=== PATIENT | female | born 1985 ===

== ENCOUNTER 2024-08-13 17:40 | Emergency (ER) | payer BC, SELFPAY ==
--- NOTE | ~2024-08-13 | XR_ITS ---
EXAMINATION: XR foot RT min 3V DATE: 08/13/2024 19:00 INDICATION: Right foot pain. Injury. TECHNIQUE: 4 views of right foot were obtained. COMPARISON: None. FINDINGS: Alignment is normal. No fracture. There is mild osteoarthritis of first metatarsophalangeal joint. IMPRESSION: 1. No fracture. Reviewed, dictated and finalized at location A. SH PHOTOGRAPHER IMPRESSION: 1. No fracture.
--- NOTE | 2024-08-13 18:00 | ED.LOWEXIN ---
HPI - Extremity Injury (Lower) General Chief Complaint: Extremity Injury, Lower Stated Complaint: Injured Right Foot Time Seen by Provider: 08/13/24 19:08 Source: patient and RN notes reviewed Mode of arrival: ambulatory Limitations: no limitations History of Present Illness HPI Narrative: 39-year-old female presents with concern for injury to the 1st digit of her right foot. Reports 4 days ago she dropped a heavy block on for 2. Reports small amount of bleeding the base of the toe. She reports pain radiates up the foot. She denies any intervention. MD complaint: foot injury Related Data Allergies Allergy/AdvReac Type Severity Reaction Status Date / Time No Known Allergies Allergy Verified 08/13/24 18:51 Review of Systems Review of Systems: CONSTITUTIONAL: Denies malaise, chills, sweats, or fever. SKIN: Denies rash or itching, redness, warmth, swelling. MUSCULOSKELETAL: Reports pain in the 1st digit of the right foot NEUROLOGIC: Denies numbness, weakness All systems reviewed & are unremarkable except as noted in HPI and below PMFSH Comments At time of signature, agree with nursing past medical, surgical, social and family history. There is no relevant family history pertinent to the presenting complaint Exam Narrative: GENERAL: Well-appearing, well-nourished, and in no acute distress. HEAD: Normocephalic, atraumatic. EYES: PERRLA, conjunctivae clear NECK: Supple. CHEST: Speaks in full sentences. No respiratory distress. HEART: Regular rate and rhythm. Normal and equal peripheral pulses. EXTREMITIES: 1st digit of right foot has grossly normal strength and sensation, grossly normal range of motion. No edema. Mild ecchymosis beneath the the toenail ecchymosis with a small amount of dried blood, no subungual hematoma noted. Normal sensation with sensitivity to light touch and pain. General digit tenderness. No open wounds, no skin tenting, no devitalized tissue or atrophy, no trophic changes, no obvious deformity, alignment normal, nearby joints and structures intact. Distal pulses palpable and equal bilaterally, skin warm, dry, pink. Capillary refill less than 3 seconds. SKIN: Warm, dry, no rash. NEURO: Alert and oriented x3. PSYCH: Normal mood and affect Course Course Emergency Course: Patient is aware of diagnosis, understands and agrees to treatment plan. Anticipatory guidance given. Patient agrees to follow-up as directed and is aware of reasons to seek care at the emergency department. Portions of this record may have been created with voice recognition software Level of Care: Express Care Visit Vital Signs Vital signs: Vital Signs Temperature 98 F 08/13/24 18:24 Pulse Rate 85 08/13/24 18:24 Respiratory Rate 16 08/13/24 18:24 Blood Pressure 100/65 08/13/24 18:24 Pulse Oximetry 100 08/13/24 18:24 Temperature 98 F 08/13/24 18:24 Pulse Rate 85 08/13/24 18:24 Respiratory Rate 16 08/13/24 18:24 Blood Pressure 100/65 08/13/24 18:24 Pulse Oximetry 100 08/13/24 18:24 Reviewed. MDM - Extremity Injury (Lower) MDM Narrative Medical decision making narrative: Patients injury and pain is consistent with musculoskeletal etiology. No signs of neurological or vascular compromise on exam. Compartments and tissues are soft without signs of compartment syndrome. Pain is felt appropriate for further evaluation on an outpatient basis. Imaging Data My impression: Images reviewed, interpreted by radiologist, agree, see report. Radiologist's impression: EXAMINATION: XR foot RT min 3V DATE: 08/13/2024 19:00 INDICATION: Right foot pain. Injury. TECHNIQUE: 4 views of right foot were obtained. COMPARISON: None. FINDINGS: Alignment is normal. No fracture. There is mild osteoarthritis of first metatarsophalangeal joint. IMPRESSION: 1. No fracture. Critical Care Time Critical Care Time Critical Care Time: No Discharge Plan Discharge Clinical Impression: Contusion of toe Patient Disposition: Home, Self-Care Condition: Stable Instructions: Contusion in Adults (ED) Additional Instructions: Avoid activities that cause pain until the pain subsides. Ice to the area 20-30 minutes 4-6 times a day Elevate above heart Tylenol for lesser pain Ibuprofen regularly for the next 2-3 days for the inflammation Follow up with your primary care provider if the condition is not improving within 1 week. If the condition worsens with numbness, tingling, decrease sensation with weakness seek treatment in the emergency room immediately. Patient Language: Niuean Prescriptions: New ibuprofen 600 mg tablet 600 mg PO QID PRN (Reason: pain) Qty: 30 0RF Follow-up/Referrals: PHYSICIAN,NEUROSURGERY SPINE PHYSICIAN [Primary Care Provider] - Time of Disposition: 19:14
[2024-08-13 18:24] VITALS: BP 100/65; PULSE 85; RESP 16; TEMP 36.6; O2SAT 100
== END 2024-08-13 19:24 | disposition home or self-care (01) ==
PROVIDERS: Emergency Provider Nurse Practitioner
DX: S90.111A Contusion of right great toe without damage to nail, initial encounter (principal); W20.8XXA Other cause of strike by thrown, projected or falling object, initial encounter; E03.9 Hypothyroidism, unspecified
CPT/HCPCS: 73630; 99213; G0463

== ENCOUNTER 2024-08-27 16:54 | Emergency (ER) | payer BC, SELFPAY ==
--- NOTE | 2024-08-27 16:57 | ED.CHESTPAIN ---
HPI - Chest Pain General Chief Complaint: Chest Pain Stated Complaint: Tachycardia Source: patient and RN notes reviewed Mode of arrival: ambulatory Limitations: no limitations History of Present Illness HPI narrative: Patient is a 39-year-old female who presents to the [facility] with complaints heart palpitations starting at 4:00 p.m. today. She states that she feels as if she had a rapid heart rate at that time. She states that it was accompanied by shortness of breath and left-sided sharp chest pain. She states that she is experience tachycardia in the past but has never had pain or shortness of breath with it. She denies any known cardiac history. Related Data Home Medications ?Medication ?Instructions ?Recorded ?Confirmed ?Last Taken ?Type levothyroxine 75 mcg tablet 75 mcg PO DAILY 08/27/24 08/27/24 Unknown History (Euthyrox) Allergies Allergy/AdvReac Type Severity Reaction Status Date / Time No Known Allergies Allergy Verified 08/27/24 17:00 Review of Systems Review of Systems: CONSTITUTIONAL: Denies fever, chills, or sweats. EYES: Denies visual changes, redness, or discharge. ENT: Denies otalgia and sore throat CARDIOVASCULAR: Reports chest pain and palpitations. RESPIRATORY: Denies cough but reports dyspnea. GASTROINTESTINAL: Denies abdominal pain, nausea, vomiting, or diarrhea. GENITOURINARY: Denies dysuria or hematuria. SKIN: Denies rash or itching. MUSCULOSKELETAL: Denies back pain, joint pain, or myalgia. NEUROLOGIC: Denies headache, numbness, or weakness. Pertinent positives per HPI. PMFSH Comments At the time of my signature, I reviewed and agree with the nursing past medical, surgical, social, and family history. There is no relevant family history pertinent to the patient complaint. Exam Narrative: GENERAL: This is a well-nourished, well-developed patient, in no apparent distress. HEAD: normocephalic, atraumatic. EYES: PERRL. Sclera clear/white. Vision is grossly intact. EARS: External ears normal, auditory canals clear and without drainage, TMs normal without perforation. Hearing grossly intact. NOSE: External nose normal with no obvious nasal discharge, nares without redness, no rhinorrhea. THROAT: Mucous membranes moist, posterior pharynx clear. NECK: Neck supple, non-tender without lymphadenopathy, masses or thyromegaly. CARDIOVASCULAR: Regular rate and rhythm without murmurs, gallops, or rubs. RESPIRATORY: Clear to auscultation. Breath sounds equal bilaterally. No wheezes, rales, or rhonchi. GASTROINTESTINAL: Abdomen soft, non-tender, nondistended. Bowel sounds are active. No hepato-splenomegaly, or palpable masses. No guarding. SKIN: warm, intact with no suspicious lesions or rash, good texture and turgor. NEURO: awake, alert, and oriented to person, place and time. There were no obvious focal neurologic abnormalities. Course Course Level of Care: Express Care Visit Vital Signs Vital signs: Vital Signs Temperature 98.6 F 08/27/24 17:03 Pulse Rate 89 08/27/24 17:03 Respiratory Rate 16 08/27/24 17:03 Blood Pressure 111/77 08/27/24 17:03 Pulse Oximetry 100 08/27/24 17:03 Temperature 98.6 F 08/27/24 17:03 Pulse Rate 89 08/27/24 17:03 Respiratory Rate 16 08/27/24 17:03 Blood Pressure 111/77 08/27/24 17:03 Pulse Oximetry 100 08/27/24 17:03 Reviewed Transfer Transfered to: [facility] Transportation: Other (Private vehicle) Transfer rationale: Appropriate evaluation, testing, and treatment for her palpitation and chest pain Accepting physician: Marissa Barron NP [facility] - Chest Pain MDM Narrative Medical decision making narrative: Patient was transferred to [facility] via private vehicle for further evaluation and treatment of her chest pain and heart palpitations. Report was given to Marissa Barron NP at [facility] who accepted the patient for transfer. Differential Diagnosis Differential diagnosis: Likely stable angina, unstable angina pectoris, atypical chest pain, chest pain and other (tachycardia, svt) ECG Data EKG #1: ECG completion date: 08/27/24 ECG completion time: 17:09 Interpretation: Sinus rhythm. Normal axis, normal intervals, nonspecific T-wave abnormality, no acute ST elevation. Critical Care Time Critical Care Time Critical Care Time: No Discharge Plan Discharge Clinical Impression: Heart palpitations Patient Disposition: Acute Care Hospital Condition: Stable Additional Instructions: Go directly to [facility] emergency department. Patient Language: Turkish Prescriptions: No Action ibuprofen 600 mg tablet 600 mg PO QID PRN (Reason: pain) Qty: 30 0RF levothyroxine [Euthyrox] 75 mcg tablet 75 mcg PO DAILY Follow-up/Referrals: PHYSICIAN,ROLLER MILL TENDER [Primary Care Provider] - Time of Disposition: 17:22
--- NOTE | 2024-08-27 16:58 | ECG_ITS ---
Test Date: 2024-08-27 17:09:53 Measurements Intervals [place] Rate: 81 P: 66 MO: 139 QRS: 63 QRSD: 86 T: 23 QT: 358 QTc: 416 Interpretive Statements SINUS RHYTHM POSSIBLE LEFT ATRIAL ENLARGEMENT NONSPECIFIC ST-T WAVE ABNORMALITY- INFERIOR LEADS BASELINE ARTIFACT- I, II, III, AVR, AVL, AVF, V1, V4-V6 BORDERLINE ECG No previous ECG available for comparison Electronically Signed On 08-27-2024 19:58:02 TIE UP WORKER by Sunny Turner D.O.
[2024-08-27 17:03] VITALS: BP 111/77; PULSE 89; RESP 16; TEMP 37; O2SAT 100
== END 2024-08-27 17:18 | disposition short-term general hospital (02) ==
PROVIDERS: Emergency Provider Nurse Practitioner
DX: R00.2 Palpitations (principal); E03.9 Hypothyroidism, unspecified
CPT/HCPCS: 93005; 99213; G0463

== ENCOUNTER 2024-08-27 17:37 | Emergency (ER) | payer BC, SELFPAY ==
[2024-08-27] VITALS (9 sets, daily range): BP systolic 113–140; BP diastolic 67–88; PULSE 69–82; RESP 11–20; TEMP 36.8; O2SAT 99–100
--- NOTE | ~2024-08-27 | XR_ITS ---
CHEST RADIOGRAPH, PA AND LATERAL CLINICAL HISTORY: chest palpitations . COMPARISON: None available TECHNIQUE: PA and lateral views of the chest. FINDINGS The cardiomediastinal silhouette is unremarkable. The lungs are clear. Visualized osseous structures and soft tissues are unremarkable. IMPRESSION: No focal infiltrate or effusion. Reviewed, dictated and finalized at location A. ICAL DEPENDENCY NURSE
--- OUTSIDE RECORDS SUMMARY | 2024-08-27 17:39 | XMS_ITS | Clinical Summary ---
Author Organization [facility] [employer] Address [address] [place] [address] Care Team Providers Care Waste Reclaimer Name Role Phone Unknown, Provider Primary Care Provider Unavaila ble Source Comments [facility] [employer],non-owned Affiliates and Associated Physician Practices is amultiple site organization consisting of ambulatory clinics and hospital sitesin [place], [place], [place] and [place]. This disclosure is being madepursuant to the Care Everywhere program and may not contain all information available regarding this patient. Last updated 18.[facility] [employer] Immunizations Name Administration Dates Next Due Covid Pfizer primary monoval ent 12+ yr 0.3mL Purple cap 11/06/2020,10/14/2020 Social History Tobacco Use Types Packs/Day Years Used Date Smoking Tobacco: Never Assessed Sex and Gender Information Value Date Recorded Sex Assigned at Not on file Gender Identity Not on file Sexual Orientation Not on file Plan of Treatment Health Maintenance Due Date Last Done Comments LIPID TESTING 1983 MAMMOGRAM 1983 PAP SMEAR 1983 HIV SCREENING 1998 HEPATITIS C SCREENING 03/03/2001 DTAP/TDAP/TD VACCINES (1 - Tdap) 2002 HEPATITIS B VACCINE (1 of 3 - 19+ 3-dose series) 2002 COVID-19 VACCINE (2023-2 5 season) 2024 11/06/2020, 10/14/2020 INFLUENZA VACCINE (#1) 2024 DEPRESSION SCREENING 07/17/2024 ZOSTER VACCINE (1 of 2) 2033 HIB VACCINE Aged Out No longer eligi ble based on patient's age to complete this topic HPV VACCINE Aged Out No longer eligi ble based on patient's age to complete this topic MENINGOCOCCAL (Group B) VACCINE Aged Out No longer eligible b ased on patient's age to complete this topic MENINGOCOCCAL VACCINE Aged Out No jose g mary ann eligible based on patient's age to complete this topic PNEUMOCOCCAL VACCINE Aged Out No long er eligible based on patient's age to complete this topic Care Teams Waste Reclaimer Relationship Specialty Start Date End Date Unknown, Provider PCP - General 11/06/20
--- OUTSIDE RECORDS SUMMARY | 2024-08-27 17:39 | XMS_ITS | Referral Summary ---
Author Organization [facility] [employer] Address [address] [place] [address] Care Team Providers Care Manager Transport Name Role Phone Unknown, Provider Primary Care Provider Unavaila ble Source Comments [facility] [employer],non-owned Affiliates and Associated Physician Practices is amultiple site organization consisting of ambulatory clinics and hospital sitesin [place], [place], [place] and [place]. This disclosure is being madepursuant to the Care Everywhere program and may not contain all information available regarding this patient. Last updated 18.[facility] [employer] Immunizations Name Administration Dates Next Due Covid Pfizer primary monoval ent 12+ yr 0.3mL Purple cap 11/06/2020,10/14/2020 Social History Tobacco Use Types Packs/Day Years Used Date Smoking Tobacco: Never Assessed Sex and Gender Information Value Date Recorded Sex Assigned at Not on file Gender Identity Not on file Sexual Orientation Not on file Plan of Treatment Not on file Care Teams Manager Transport Relationship Specialty Start Date End Date Unknown, Provider PCP - General 11/06/20
--- OUTSIDE RECORDS SUMMARY | 2024-08-27 17:39 | XMS_ITS | Patient Health Summary ---
Author Organization [facility] [employer] Address [address] [place] [address] Care Team Providers Care Jewelry Bearing Maker Name Role Phone Unknown, Provider Primary Care Provider Unavaila ble Note from [facility],non-owned Affiliates and Associated Physician Practices is amultiple site organization consisting of ambulatory clinics and hospital sitesin [place], [place], [place] and [place]. This disclosure is being madepursuant to the Care Everywhere program and may not contain all information available regarding this patient. Last updated 18.[facility] Immunizations * Covid Pfizer primary monovalent 12+ yr 0.3mL Purple cap(Given 11/06/2020, 10/14/2020) Social History Tobacco Use Types Packs/Day Years Used Date Smoking Tobacco: Never Assessed Sex and Gender Information Value Date Recorded Sex Assigned at Not on file Gender Identity Not on file Sexual Orientation Not on file Care Teams Jewelry Bearing Maker Relationship Specialty Start Date End Date Unknown, Provider PCP - General 11/06/20
--- NOTE | 2024-08-27 22:24 | ECG_ITS ---
Test Date: 2024-08-27 23:47:36 Measurements Intervals [place] Rate: 74 P: 52 PA: 139 QRS: 56 QRSD: 87 T: 48 QT: 384 QTc: 426 Interpretive Statements SINUS RHYTHM NORMAL ECG Compared to ECG 08/27/2024 17:09:53 No significant changes Electronically Signed On 08-28-2024 07:04:32 ARMATURE WINDER REPAIR by Sunny Turner D.O.
--- OUTSIDE RECORDS SUMMARY | 2024-08-27 23:23 | XMS_ITS | Patient Health Summary ---
Author Organization [facility] [employer] Address [address] [place] [address] Care Team Providers Care Gsa Coordinator Name Role Phone Unknown, Provider Primary Care Provider Unavaila ble Note from [facility],non-owned Affiliates and Associated Physician Practices is amultiple site organization consisting of ambulatory clinics and hospital sitesin [place], [place] and [place]. This disclosure is being madepursuant to the Care Everywhere program and may not contain all information available regarding this patient. Last updated 18.[facility] Immunizations * Covid Pfizer primary monovalent 12+ yr 0.3mL Purple cap(Given 11/06/2020, 10/14/2020) Social History Tobacco Use Types Packs/Day Years Used Date Smoking Tobacco: Never Assessed Sex and Gender Information Value Date Recorded Sex Assigned at Not on file Gender Identity Not on file Sexual Orientation Not on file Care Teams Gsa Coordinator Relationship Specialty Start Date End Date Unknown, Provider PCP - General 11/06/20
--- OUTSIDE RECORDS SUMMARY | 2024-08-27 23:23 | XMS_ITS | Referral Summary ---
Author Organization [facility] [employer] Address [address] [place] [address] Care Team Providers Care Product Management Manager Name Role Phone Unknown, Provider Primary Care Provider Unavaila ble Source Comments [facility] [employer],non-owned Affiliates and Associated Physician Practices is amultiple site organization consisting of ambulatory clinics and hospital sitesin [place], [place], [place] and [place]. This disclosure is being madepursuant to the Care Everywhere program and may not contain all information available regarding this patient. Last updated 18.[facility] [employer] Immunizations Name Administration Dates Next Due Covid Pfizer primary monoval ent 12+ yr 0.3mL Purple cap 11/06/2020,10/14/2020 Social History Tobacco Use Types Packs/Day Years Used Date Smoking Tobacco: Never Assessed Sex and Gender Information Value Date Recorded Sex Assigned at Not on file Gender Identity Not on file Sexual Orientation Not on file Plan of Treatment Not on file Care Teams Product Management Manager Relationship Specialty Start Date End Date Unknown, Provider PCP - General 11/06/20
--- OUTSIDE RECORDS SUMMARY | 2024-08-27 23:23 | XMS_ITS | Clinical Summary ---
Author Organization [facility] [employer] Address [address] [place] [address] Care Team Providers Care Processing Spec Name Role Phone Unknown, Provider Primary Care Provider Unavaila ble Source Comments [facility] [employer],non-owned Affiliates and Associated Physician Practices is amultiple site organization consisting of ambulatory clinics and hospital sitesin [place], [place], [place] and [place]. This disclosure is being madepursuant to the Care Everywhere program and may not contain all information available regarding this patient. Last updated 18.[facility] Immunizations Name Administration Dates Next Due Covid [...] age to complete this topic Care Teams Processing Spec Relationship Specialty Start Date End Date Unknown, Provider PCP - General 11/06/20
[2024-08-28] VITALS (18 sets, daily range): BP systolic 95–111; BP diastolic 63–69; PULSE 74–84; RESP 12–20; O2SAT 100
--- NOTE | 2024-08-28 00:13 | ED.ARRPALP ---
HPI - Arrhythmia/Palpitations General Chief Complaint: Arrhythmia/Palpitations Stated Complaint: palpitations Time Seen by Provider: 08/27/24 22:52 History of Present Illness HPI narrative: Patient is a 39-year-old female who presents to the ER with complaints of chest pain that started around 4:00 p.m. yesterday, approximately 8 hours ago. She reports her heart started racing and she became short of breath. Patient reports she has experienced these symptoms intermittently for the past 2 weeks. She reports she has had increased anxiety recently. Patient reports she was worked up for these symptoms in [place] before they moved. She endorses a history of hypothyroidism and takes daily medication treatment. Patient reports her thyroid was last checked in June 2024. She reports her only medical history is cholecystectomy. Patient denies any recent headaches, fevers, abdominal pain, wheezing. Related Data Home Medications ?Medication ?Instructions ?Recorded ?Confirmed ?Last Taken ?Type levothyroxine 75 mcg tablet 75 mcg PO DAILY 08/27/24 08/27/24 Unknown History (Euthyrox) Allergies Allergy/AdvReac Type Severity Reaction Status Date / Time No Known Allergies Allergy Verified 08/27/24 17:00 Review of Systems Review of Systems: All systems reviewed & are unremarkable except as noted in HPI and below Exam Narrative: GENERAL: Well appearing, well-nourished, non-toxic, in no acute distress. HEAD: Normocephalic, atraumatic. NECK: Supple. No adenopathy, no masses. RESPIRATORY: Airway patent, respirations nonlabored. Clear to auscultation bilaterally, no rales, rhonchi, wheezing. CARDIOVASCULAR: Regular rate and rhythm without murmurs, rubs, or gallops. Peripheral pulses 2+ and equal bilaterally. Mild R side CVA tenderness. ABDOMINAL: Soft, nontender, nondistended, no hepatosplenomegaly. Normoactive BS. MUSCULOSKELETAL: Moves all extremities. Strength/ROM intact without gross deformities. SKIN: Warm, dry, normal color. No rashes. NEURO: A&O X3. Speech clear. Cranial nerves intact. No ataxic movements. PSYCHIATRIC: Appropriate mood and affect. Normal interaction. Course Vital Signs Vital signs: Vital Signs Temperature 36.8 C 08/27/24 17:46 Pulse Rate 82 08/27/24 17:46 Respiratory Rate 16 08/27/24 17:46 Blood Pressure 140/88 08/27/24 17:46 Pulse Oximetry 100 08/27/24 17:46 Oxygen Delivery Room Air 08/27/24 17:46 Temperature 36.8 C 08/27/24 20:44 Pulse Rate 76 08/28/24 00:31 Respiratory Rate 15 08/28/24 00:31 Blood Pressure 95/63 L 08/28/24 00:31 Pulse Oximetry 100 08/28/24 00:31 Oxygen Delivery Room Air 08/27/24 17:46 MDM - Arrhythmia/Palpitations MDM Narrative Medical decision making narrative: Patient is a 39-year-old female who presents to the ER with complaints of chest pain that started around 4:00 p.m. yesterday, approximately 8 hours ago. She reports her heart started racing and she became short of breath. Patient reports she has experienced these symptoms intermittently for the past 2 weeks. She reports she has had increased anxiety recently. Patient reports she was worked up for these symptoms in [place] before they moved. She endorses a history of hypothyroidism and takes daily medication treatment. Patient reports her thyroid was last checked in June 2024. She reports her only medical history is cholecystectomy. Patient denies any recent headaches, fevers, abdominal pain, wheezing. Labs Ordered: Troponin, TSH, CBC, CMP, D-dimer, INR, PTT, lipase, COVID/flu/RSV swab Imaging Ordered: Chest x-ray Medications Ordered: None necessary Results: Patient's chest x-ray indicates The cardiomediastinal silhouette is unremarkable. The lungs are clear. Visualized osseous structures and soft tissues are unremarkable. Diagnosis: anxiety disorder, atypical chest pain Risks: HEART score:low risk HEART Pathway for Early Discharge in Acute Chest [place] [facility] [email or web address] All calculations should be rechecked by clinician prior to use RESULT SUMMARY: 0 points HEART Pathway Score Low risk 0.9-1.7% 30-day MACE Repeat troponin at 3 hours and if negative, discharge home with outpatient follow-up. INPUTS: History ?> 0 = Slightly suspicious EKG ?> 0 = Normal Age ?> 0 = <45 Risk factors ?> 0 = No known risk factors Initial troponin ?> 0 = <=Normal limit Consults: None necessary Patient Education/Shared MDM: Results of lab work and chest x-ray shared with patient. She endorses understanding and is in agreement with taking an Ativan PO prior to discharge to see if this helps alleviate some of her symptoms. Pt denies active chest pain at the time of re-evaluation. She does endorse significant daily caffeine intake and verbalizes understanding with suggestion to cut back. Patient strongly advised to maintain hydration status upon discharge and follow-up with her PCP. She will be discharged home with prescription for Hydroxyzine. Strict return precautions provided. Patient verbalized understanding is in agreement with plan. Vital signs stable at time of discharge. All questions answered. Differential Diagnosis Differential diagnosis: Likely palpitations, anxiety, sinus tachycardia and supraventricular tachycardia Lab Data Attestation: I reviewed the patient's lab results. 08/28/24 00:16 08/28/24 00:17 Labs: Lab Results 08/27/24 08/27/24 08/28/24 Range/Units 23:54 23:58 00:16 WBC 12.7 H (4.5-10.0) K/mm3 RBC 4.62 (4.2-5.4) M/mm3 Hgb 13.7 (12.0-15.0) g/dL Hct 41.9 (37.0-47.0) % MCV 90.7 (80-100) fl MCH 29.7 (26-34) pg MCHC 32.7 (32-36) g/dl RDW 12.8 (11.5-14.5) % Plt Count 247 (150-375) k/mm3 MPV 10.7 H (7.4-10.4) fl Immature Gran % (Auto) 0.5 (0-0.5) % Neut % (Auto) 71.7 (45.5-73.1) % Lymph % (Auto) 19.6 (18.3-44.2) % Brooks % (Auto) 7.0 (2.6-8.5) % Eos % (Auto) 0.8 (0-4.4) % Baso % (Auto) 0.4 (0.2-1.2) % Lymph # (Auto) 2.48 (0.9-3.2) K/mm3 Brooks # (Auto) 0.9 H (0.1-0.6) K/mm3 Eos # (Auto) 0.1 (0-0.3) K/mm3 Baso # (Auto) 0.1 (0.0-0.1) K/mm3 Abs Immat Gran (auto) 0.06 H (0.00-0.031) K/mm3 Absolute Neuts (auto) 9.1 H (1.3-6.7) K/mm3 Absolute Nucleated RBC 0.000 (0.0-0.012) K/mm3 Nucleated RBC % 0.0 (0.0-0.2) % PT (11.1-14.7) Seconds INR APTT (22.3-36.8) Seconds D-Dimer (<0.48) ug/mL Sodium (137-145) mmol/L Potassium (3.4-5.0) mmol/L Chloride (98-107) mmol/L Carbon Dioxide (22-30) mmol/L Anion Gap (4-12) mmol/L BUN (7-17) mg/dL Creatinine (0.7-1.0) mg/dL Estim Creat Clear Calc ml/min Estimated GFR (59 - ) Glucose (65-110) mg/dL Calcium (8.4-10.2) mg/dL Total Bilirubin (0.2-1.3) mg/dL AST (14-36) U/L ALT (6-35) U/L Alkaline Phosphatase (38-126) U/L Troponin I (0.000-0.034) ng/mL Total Protein (6.3-8.2) g/dL Albumin (3.5-5.1) g/dL Lipase (23-300) U/L TSH (Reflex) 2.360 (0.465-4.68) uIU/mL Urine Color Yellow (Yellow) Urine Appearance Clear (Clear) Urine pH 7.0 (5.0-9.0) Ur Specific [place] 1.023 (1.001-1.035) Urine Protein Trace (Negative) mg/dL Urine Glucose (UA) Negative (Negative) mg/dL Urine Ketones Trace H (Negative) mg/dL Ur Blood (Man) 1+ H (Negative) Urine Nitrate Negative (Negative) Urine Bilirubin Negative (Negative) Urine Urobilinogen 1.0 (<2.0) mg/dL Leukocyte Esterase Rfl Trace H (Negative) RACHEL/UL Urine RBC 11-20 H (0-2) /hpf Urine WBC 0-5 (0-3) /hpf Ur Squamous Epith Cells Occasional (Few) /hpf Urine Bacteria None seen /hpf Urine Casts 0-2 Influenza A (RT-PCR) Negative (Negative) Influenza B (RT-PCR) Negative (Negative) RSV (RT-PCR) Negative (Negative) SARS-CoV-2 RNA (RT-PCR) Negative (Negative) 08/28/24 Range/Units 00:17 WBC (4.5-10.0) K/mm3 RBC (4.2-5.4) M/mm3 Hgb (12.0-15.0) g/dL Hct (37.0-47.0) % MCV (80-100) fl MCH (26-34) pg MCHC (32-36) g/dl RDW (11.5-14.5) % Plt Count (150-375) k/mm3 MPV (7.4-10.4) fl Immature Gran % (Auto) (0-0.5) % Neut % (Auto) (45.5-73.1) % Lymph % (Auto) (18.3-44.2) % Brooks % (Auto) (2.6-8.5) % Eos % (Auto) (0-4.4) % Baso % (Auto) (0.2-1.2) % Lymph # (Auto) (0.9-3.2) K/mm3 Brooks # (Auto) (0.1-0.6) K/mm3 Eos # (Auto) (0-0.3) K/mm3 Baso # (Auto) (0.0-0.1) K/mm3 Abs Immat Gran (auto) (0.00-0.031) K/mm3 Absolute Neuts (auto) (1.3-6.7) K/mm3 Absolute Nucleated RBC (0.0-0.012) K/mm3 Nucleated RBC % (0.0-0.2) % PT 13.6 (11.1-14.7) Seconds INR 1.0 APTT 29.2 (22.3-36.8) Seconds D-Dimer 0.36 (<0.48) ug/mL Sodium 140 (137-145) mmol/L Potassium 3.9 (3.4-5.0) mmol/L Chloride 105 (98-107) mmol/L Carbon Dioxide 22 (22-30) mmol/L Anion Gap 13 H (4-12) mmol/L BUN 13 (7-17) mg/dL Creatinine 0.68 L (0.7-1.0) mg/dL Estim Creat Clear Calc 91 ml/min Estimated GFR > 60 (59 - ) Glucose 103 (65-110) mg/dL Calcium 8.9 (8.4-10.2) mg/dL Total Bilirubin 0.6 (0.2-1.3) mg/dL AST 25 (14-36) U/L ALT 19 (6-35) U/L Alkaline Phosphatase 80 (38-126) U/L Troponin I < 0.012 (0.000-0.034) ng/mL Total Protein 8.0 (6.3-8.2) g/dL Albumin 4.3 (3.5-5.1) g/dL Lipase 84 (23-300) U/L TSH (Reflex) (0.465-4.68) uIU/mL Urine Color (Yellow) Urine Appearance (Clear) Urine pH (5.0-9.0) Ur Specific [place] (1.001-1.035) Urine Protein (Negative) mg/dL Urine Glucose (UA) (Negative) mg/dL Urine Ketones (Negative) mg/dL Ur Blood (Man) (Negative) Urine Nitrate (Negative) Urine Bilirubin (Negative) Urine Urobilinogen (<2.0) mg/dL Leukocyte Esterase Rfl (Negative) RACHEL/UL Urine RBC (0-2) /hpf Urine WBC (0-3) /hpf Ur Squamous Epith Cells (Few) /hpf Urine Bacteria /hpf Urine Casts Influenza A (RT-PCR) (Negative) Influenza B (RT-PCR) (Negative) RSV (RT-PCR) (Negative) SARS-CoV-2 RNA (RT-PCR) (Negative) Imaging Data Attestation: I personally reviewed and interpreted this imaging study as follows: Radiologist's impression: Impressions Chest X-Ray 08/28/24 00:38 IMPRESSION: No focal infiltrate or effusion. Discharge Plan Discharge Clinical Impression: Palpitations, Atypical chest pain, Anxiety Patient Disposition: Home, Self-Care Condition: Stable Instructions: Antibiotic Form Additional Instructions: Please return to the ER with an worsening symptoms. Follow-up with primary care provider in the next 2-3 days. Take all medications as prescribed. Patient Language: Italian Prescriptions: New hydroxyzine HCl 25 mg tablet 25 mg PO TID PRN (Reason: anxiety ) Qty: 20 0RF No Action ibuprofen 600 mg tablet 600 mg PO QID PRN (Reason: pain) Qty: 30 0RF levothyroxine [Euthyrox] 75 mcg tablet 75 mcg PO DAILY Follow-up/Referrals: PHYSICIAN,UNDER CUTTER [Primary Care Provider] - Time of Disposition: 02:21
[2024-08-28 00:17] LABS: Add Urine Microscopic? YES; Appearance Urine Clear (Clear); Bacteria Urine None Seen /hpf; Bilirubin Urine Negative (Negative); Blood Urine 1+ (Negative); Color Urine Yellow (Yellow); Glucose Urine UA Negative (Negative); Ketones Urine Trace mg/dL (Negative); Leukocyte Esterase Ur Trace LEU/UL (Negative); Nitrate Urine Negative (Negative); Non Pathogenic Casts 0-2; Protein Urine Trace mg/dL (Negative); Specific Grav Ur 1.023 (1.001-1.035); Squamous Epithelial Cell Urine Occasional /hpf (Few); WBC Urine 0-5 /hpf (0-3)
[2024-08-28 00:33] LABS: Basophils Absolute Auto 0.1 K/mm3 (0.0-0.1); Basophils Percent Auto 0.4 % (0.2-1.2); Eosinophils Absolute Auto 0.1 K/mm3 (0-0.3); Eosinophils Percent Auto 0.8 % (0-4.4); Hematocrit 41.9 % (37.0-47.0); Hemoglobin 13.7 g/dL (12.0-15.0); Immature Granulocyte Absolute 0.06 K/mm3 (0.00-0.031); Immature Granulocyte Percent A 0.5 % (0-0.5); Lymphocytes Absolute Auto 2.48 K/mm3 (0.9-3.2); Lymphocytes Percent Auto 19.6 % (18.3-44.2); Mean Corpuscular HGB Conc 32.7 g/dl (32-36); Mean Corpuscular Hemoglobin 29.7 pg (26-34); Mean Corpuscular Volume 90.7 fl (80-100); Mean Platelet Volume 10.7 fl (7.4-10.4); Monocytes Absolute Auto 0.9 K/mm3 (0.1-0.6); Neutrophils Absolute Auto 9.1 K/mm3 (1.3-6.7); Neutrophils Percent Auto 71.7 % (45.5-73.1); Platelet Count Result 247 k/mm3 (150-375); Red Blood Count 4.62 M/mm3 (4.2-5.4); Red Cell Distribution Width 12.8 % (11.5-14.5); White Blood Count 12.7 K/mm3 (4.5-10.0)
[2024-08-28 00:44] LABS: Prothrombin Time 13.6 Seconds (11.1-14.7)
[2024-08-28 00:45] LABS: Partial Thromboplastin Time 29.2 Seconds (22.3-36.8); Potassium 3.9 mmol/L (3.4-5.0)
[2024-08-28 00:46] LABS: Influenza A QL RT-PCR Negative (Negative); Influenza B QL RT-PCR Negative (Negative); RSV RNA, RT-PCR Negative (Negative); SARS-CoV-2 RNA PCR Negative (Negative)
[2024-08-28 00:49] LABS: D Dimer 0.36 ug/mL (<0.48)
[2024-08-28 00:50] LABS: Alanine Aminotransferase 19 U/L (6-35); Albumin Level 4.3 g/dL (3.5-5.1); Alkaline Phosphatase 80 U/L (38-126); Anion Gap 13 mmol/L (4-12); Aspartate Amino Transferase 25 U/L (14-36); Bilirubin,Total 0.6 mg/dL (0.2-1.3); Blood Urea Nitrogen 13 mg/dL (7-17); Calcium 8.9 mg/dL (8.4-10.2); Carbon Dioxide 22 mmol/L (22-30); Chloride 105 mmol/L (98-107); Estimated CRCL calculation 91 ml/min; Estimated Glomerular Filt Rate > 60; Glucose 103 mg/dL (65-110); Lipase 84 U/L (23-300); Sodium 140 mmol/L (137-145)
[2024-08-28 00:55] LABS: Troponin I < 0.012 ng/mL (0.000-0.034)
[2024-08-28] MEDS: LORazepam (*CRX) 0.5 MG TABLET PO (02:26)
== END 2024-08-28 02:57 | disposition home or self-care (01) ==
PROVIDERS: Emergency Provider Registered Nurse
DX: R00.2 Palpitations (principal); R07.89 Other chest pain; F41.9 Anxiety disorder, unspecified; Z20.822 Contact with and (suspected) exposure to COVID-19; E03.9 Hypothyroidism, unspecified
CPT/HCPCS: 36415; 71046; 80053; 81001; 83690; 84443; 84484; 85025; 85380; 85610; 85730; 87637; 93005; 99284; A9270